=== PATIENT | male | born 2000 | race Caucasian/White ===

== ENCOUNTER 2024-05-28 17:21 | Emergency (ER) | payer SELFPAY ==
[~2024-05-28] VITALS: Ht 193 cm; Wt 84.3 kg
[2024-05-28 17:23] VITALS: BP 123/57; TEMP 97; O2SAT 100
[2024-05-28] MEDS: DERMABOND TOPICAL SKIN ADHESIVE TOP ONE (17:51)
== END 2024-05-28 18:16 | disposition home or self-care (01) ==
LOC: M ED 17:21
DX: S61.211A Laceration without foreign body of left index finger without damage to nail, initial encounter (principal); X58.XXXA Exposure to other specified factors, initial encounter; Y92.9 Unspecified place or not applicable; Y93.89 Activity, other specified; Y99.9 Unspecified external cause status

== ENCOUNTER 2024-06-06 20:35 | Emergency (ER) | payer SELFPAY ==
[~2024-06-06] VITALS: Ht 193 cm; Wt 86.5 kg
[2024-06-06 20:42] VITALS: BP 118/88; TEMP 98.8; O2SAT 100
== END 2024-06-06 21:05 | disposition left against medical advice (07) ==
LOC: M ED 20:35
DX: Z53.21 Procedure and treatment not carried out due to patient leaving prior to being seen by health care provider (principal)